=== PATIENT | male | born 1940 | race Caucasian/White ===

== ENCOUNTER 2017-07-14 11:41 | Observation (INO) | payer MEDICARE, OTHER ==
[2017-07-14 12:17] LABS: #Basophils 0.1 thou/uL (0.0-0.2); #Eosinphils 0.2 thou/uL (0.0-0.7); #Lymphocytes 1.5 thou/uL (1.20-3.40); #Monocytes 0.8 thou/uL (0.11-0.59); #Neutrophils 8.7 thou/uL (1.40-6.50); %Basophils 0.5 % (0.0-1.0); %Eosinophils 1.8 % (0.0-10.0); %Lymphocytes 13.3 % (21.0-51.0); %Monocytes 7.4 % (0.0-10.0); Hemoglobin 14.4 g/dL (14.0-18.0); Mean Corpuscular Hemoglobin 32.3 pg (27.0-31.0); Mean Corpuscular Volume 94.7 fl (80.0-94.0); Platelet Count 215 thou/uL (130-400); RBC Distribution Width 12.1 % (11.5-14.5); Red Blood Cell (RBC) Count 4.45 mill/uL (4.70-6.10); White Blood Cell (WBC) Count 11.3 thou/uL (4.8-10.8)
--- NOTE | 2017-07-14 12:20 | RAD ---
CHEST 1 VIEW: HISTORY: A 77-year-old male with chest pain. History of coronary artery disease, COPD, and congestive heart f ailure. FINDINGS: Monitor leads overlie the chest. Minimal cardiomegaly. There is blunting of both costophrenic angle s raising concern for possible small pleural effusions. Mild vascular congestion. Biapical pleural thickening. No confluent pneumonia. IMPRESSION: Mild vascular congestion and bilateral pleural effusions with borderline cardiomegaly. Mild biapical pleural thickening worse on the right side. No confluent pneumonia. POS: H
[2017-07-14 12:23] LABS: PTT 27.4 SEC (22.9-36.1); Prothrombin Time 13.3 SEC (12.0-14.7)
[2017-07-14 12:24] LABS: D-Dimer Test 0.53 *mcg/mL (0.27-0.43)
[2017-07-14 12:25] LABS: Bilirubin Negative (Negative); Blood, Urine Negative (Negative); Clarity CLEAR (Clear); Glucose, Urine (Dipstick) Negative (Negative); Leukocyte Negative (Negative); Nitrite Negative (Negative); Protein, Urine (Dipstick) Negative (Neg-Trace); Specific Gravity, Urine 1.011 (1.002-1.036)
[2017-07-14 12:43] LABS: ALT (SGPT) 34 U/L (8-55); AST (SGOT) 27 U/L (5-34); Albumin 3.6 g/dL (3.4-4.8); Alkaline Phosphatase 95 U/L (40-150); Anion Gap 15 mmol/L (10-20); BUN (Urea Nitrogen) 10 mg/dL (8.4-25.7); Bilirubin, Total 0.6 mg/dL (0.2-1.2); CK (CPK) 39 U/L (30-200); Calc. Creatinine Clearance 0 mL/min (70-130); Carbon Dioxide 25 mmol/L (23-31); Chloride 100 mmol/L (98-107); Estimated GFR-MDRD Greater than 90; Globulin 2.8 g/dL (2.4-3.5); Glucose 177 mg/dL (83-110); Lipase 11 U/L (8-78); Potassium 3.7 mmol/L (3.5-5.1); Protein, Total 6.4 g/dL (5.8-8.1); Sodium 136 mmol/L (136-145)
[2017-07-14 12:44] LABS: Digoxin Less than 0.15 ng/mL (0.8-2.0)
[2017-07-14 12:46] LABS: CKMB 1.1 ng/mL (0-6.6); Troponin I 0.017 ng/mL (< 0.028)
[2017-07-14] MEDS ORDERED: ISOVUE-370 76%-LOCM 1 ML ONE (13:26)
[2017-07-14] MEDS ORDERED: Ondansetron HCl/PF 4 MG/2 ML Vial IVP PRN (14:33)
[2017-07-14] MEDS ORDERED: hydrALAZINE 20 MG/ML VIAL SLOW IVP PRN (14:33)
[2017-07-14] MEDS ORDERED: Labetalol HCl 100 MG/20 ML VIAL SLOW IVP PRN (14:33)
[2017-07-14] MEDS ORDERED: Acetaminophen 650 MG Suppository PR PRN (14:33)
[2017-07-14] MEDS ORDERED: Acetaminophen 325 MG TAB PO PRN (14:33)
--- NOTE | 2017-07-14 15:13 | CT ---
CT ARTERIOGRAM CHEST WITH IV CONTRAST AND 3D MIP IMAGING: History Chest pain. Dyspnea. FINDINGS: No comparison. There is good contrast opacification of the pulmonary arteries and thoracic aorta wit h normal branching of the great vessels. There is calcification in the arterial structures. Nonenlarged, nonspecific lymph nodes are scattered about the mediastinum. There is mild atelectasis at each lung base. Prominent peripheral interstitial thickening involves each lung. Minimal right p leural fluid. IMPRESSION: 1. No CT evidence of pulmonary embolus. 2. Pulmonary interstitial fibrosis. 3. Atherosclerosis. POS: FARHEEN
[2017-07-14 15:24] LABS: Troponin I 0.024 ng/mL (< 0.028)
[2017-07-14] MEDS ORDERED: Dextrose 50% Abboject 50 ML SYRINGE SLOW IVP PRN (15:43)
[2017-07-14] MEDS ORDERED: HumaLOG 300 UNITS/3 ML VIAL SC PRN (15:43)
[2017-07-14] MEDS ORDERED: Dextrose 5% in Water 1,000 ML IV PRN (15:43)
[2017-07-14 16:11] VITALS: BMI 32.1
--- NOTE | 2017-07-14 16:15 | HP ---
PRIMARY CARE PROVIDER: [facility] in [place], [place]. CHIEF COMPLAINT: Dizziness. HISTORY OF PRESENT ILLNESS: Mr. Boo is a pleasant 77-year-old gentleman who was seen at [facility] on 07/14/2017 after he was transferred here by helicopter from his house. He has a history of coronary artery disease. He reports that he had some retrosternal discomfort las t night. He attributed to his meal. He describes it as dull, 1/10, lasting 1 or 2 hours. He took n itrospray without any relief. It subsequently resolved on its own. He denies any shortness of breat h, vertigo, nausea, vomiting at that time. He woke up today morning. He usually gets up slowly because he feels dizzy when he gets up suddenly. He went to use the bathroom. While he was in the bathroom, his phone rang. He got up suddenly to answer the phone. He had a sensation of the room spinning. He also started walking unsteadily. His neighbor called 911. Electrocardiogram done at the scene reportedly showed left bundle branch block . He was therefore transferred to this facility by helicopter. He reports that he has had similar chest discomfort in the past, tells me it was secondary to indiges tion. He denies any urinary symptoms. REVIEW OF SYSTEMS: The following complete review of systems was negative, unless otherwise mentioned in the HPI or below: Constitutional: Weight loss or gain, ability to conduct usual activities. Skin: Rash, itching. Eyes: Double vision, pain. ENT/Mouth: Nose bleeding, neck stiffness, pain, tenderness. Cardiovascular: Palpitations, dyspnea on exertion, orthopnea. Respiratory: Shortness of breath, wheezing, cough, hemoptysis, fever or night sweats. Gastrointestinal: Poor appetite, abdominal pain, heartburn, nausea, vomiting, constipation, or diarr hea. Genitourinary: Urgency, frequency, dysuria, nocturia. Musculoskeletal: Pain, swelling. Neurologic/Psychiatric: Anxiety, depression. Allergy/Immunologic: Skin rash, bleeding tendency. PAST MEDICAL HISTORY: Significant for diabetes mellitus type 2, myocardial infarction, dyslipidemia, chronic obstructive pulmonary disease. PAST SURGICAL HISTORY: Significant for appendectomy and cardiac stents x2. SOCIAL HISTORY: The patient chews tobacco. He reports occasional alcohol use. He denies recreation al drug use. FAMILY HISTORY: Significant for pancreatic cancer in his father and myocardial infarction in his gra ndfather. ALLERGIES: SULFA. CURRENT MEDICATIONS: Include metformin 1000 mg 2 times a day, spironolactone 25 mg daily, Lasix 80 m g daily, Symbicort 2 puffs 2 times a day and Novolin insulin by sliding scale. He also takes medicat ion for dyslipidemia, but is unable to recall the name. PHYSICAL EXAMINATION: GENERAL: Mr. Boo is awake and alert, not in acute distress. VITAL SIGNS: Blood pressure is 115/64, pulse is 73, his breathing at rate of 21 and saturating 98% o n room air. He is afebrile. EYES: No scleral icterus. No conjunctival pallor. ENT: Moist mucosal membranes, no oropharyngeal erythema or exudates. NECK: Supple, nontender, normal range of movement. Trachea is midline. RESPIRATORY: Accessory muscles of breathing are not active. Chest wall movements are symmetric bila terally. LUNGS: Clear to auscultation without wheeze, rhonchi or crepitations. CARDIOVASCULAR: S1 and S2 are heard, regular. Peripheral pulses palpable. No carotid bruit, no per icardial rub. ABDOMEN: Distended, nontender, bowel sounds are heard, no hepatomegaly, no splenomegaly. NEUROLOGIC: He has horizontal nystagmus on left gaze. Otherwise, cranial nerves II-XII are intact. Power is 5/5 in all 4 extremities. Deep tendon reflexes are 2+. Plantar reflexes downgoing bilater ally. Cprqqg-qc-[id number] test normal. MUSCULOSKELETAL: Power is 5/5 in all 4 extremities. He has bilateral lower extremity edema. SKIN: No rashes or subcutaneous nodules. LYMPHATIC: No cervical lymphadenopathy. PSYCHIATRIC: Normal mood, normal affect, patient is oriented to person, place, and time. LABORATORY DATA: Mr. Boo's labs and investigations were reviewed. I reviewed his electrocardiogr am, which shows normal sinus rhythm. He has nonspecific intraventricular conduction block. I also r eviewed his chest x-ray, which does not show any pulmonary infiltrates. He has mild pulmonary vascul ar congestion. He also had CT angiogram of the chest, which did not show any pulmonary embolism. He has pulmonary interstitial fibrosis. Laboratory investigation showed leukocytosis with 11,300 white cells, of which 77% are neutrophils, normal hemoglobin, normal platelet count, unremarkable electrol ytes, normal creatinine, normal liver profile, normal lipase, negative urinalysis. ASSESSMENT AND PLAN: Mr. Boo is a pleasant 77-year-old gentleman who was seen at [facility] on 07/14/2017. His problem list includes: 1. Vertigo. Mr. Boo is presenting with vertigo. He will be admitted to the hospital for further management, including neuro checks, MRI/MRA of the brain to rule out posterior circulation syndrome. I will also start him on a trial of meclizine. He does report that certain positions of the head a re worsening the vertigo. 2. Chest discomfort: The patient reports that he has had on and off chest discomfort of similar susana ure for several months to years. He also reports having stress test after having the symptoms. For now, repeat cardiac enzymes and monitor on telemetry. Check 2D echocardiogram to rule out regional w all motion abnormalities. Cardiology Service has also been consulted by the emergency room physician . 3. Diabetes mellitus: Start Accu-Cheks, insulin sliding scale. 4. Hypertension: Monitor vital signs, titrate antihypertensives as needed. 5. Chronic obstructive pulmonary disease: Stable. Code status was discussed. He is DNR. Many thanks for allowing me to participate in your patient's care. Please feel free to contact me wi th any questions or concerns. LEVEL OF RISK: High. LEVEL OF COMPLEXITY: High.
[2017-07-14 16:34] LABS: CKMB 1.3 ng/mL (0-6.6)
[2017-07-14 19:21] LABS: CKMB 1.2 ng/mL (0-6.6); Troponin I 0.026 ng/mL (< 0.028)
[2017-07-14] MEDS: Meclizine HCl 25 MG TAB PO SCH (20:53)
--- NOTE | 2017-07-14 21:27 | CON ---
DATE OF CONSULTATION: 07/14/2017 REFERRING PROVIDER: Dr. Luis Lui. REASON FOR CONSULTATION: Dizziness. HISTORY OF PRESENT ILLNESS: Mr. Boo is a pleasant 77-year-old male who has been concerned for evaluation of dizziness. Patient reports that this morning, he woke up and noticed dizziness and vertigo type sensation and felt that any sudden movement of his head would cause him to be feeling like he was spinning around in room. He was having difficulty with balancing himself and had to hold onto things. He states that this has never had happened before , he did not have any tinnitus or hearing loss. He did not complain of having any diplopia, nystagmus, numbness, tingling, or weakness. There were no changes in his speech or swallowing. He did not have any lightheadedness and feel like he is going to pass out. PAST MEDICAL HISTORY: Significant for hypertension, diabetes, hyperlipidemia, history of CA, COPD. PAST SURGICAL HISTORY: Significant for appendectomy and cardiac stent placement. SOCIAL HISTORY: He chews tobacco. He reports of occasional alcohol use. He denies illicit drug use. He is a retired . FAMILY HISTORY: Significant for pancreatic cancer in his father and history of CA in his grandfather. CURRENT MEDICATIONS: Please review MAR. ALLERGIES: SULFA DRUGS. REVIEW OF SYSTEMS: As mentioned in the HPI, otherwise negative. PHYSICAL EXAMINATION: VITAL SIGNS: Blood pressure of 89/51, pulse of 74, temperature of 98.4, respirations of 14, O2 sats 94% on room air. GENERAL: Well-developed, well-nourished male in no apparent distress. RESPIRATORY: Clear to auscultation bilaterally. CARDIOVASCULAR: Regular rate and rhythm. NEUROLOGIC: Mental status: Patient is awake, alert, oriented x3. Speech and language: Fluent speech. Cranial nerves: Pupils are 3 mm and reactive. Visual suarez are intact. Extraocular muscles are intact. No nystagmus is noted. Face is symmetric. Tongue and uvula midline. Motor exam showed normal tone and bulk with a 5/5 strength in both upper and lower extremities. Sensory : Diminished sensation in both upper and lower extremities and distal to proximal gradient. Deep tendon reflexes 1+ reflex in both upper and lower extremities. Babinski: Plantar responses flexion bilaterally. Coordination intact to woykyr-[id number]-tluafo tapping bilaterally. Rapid alternating hand movement is normal bilaterally. Dtxa-tt-upgo testing is normal bilaterally. Romberg is negative. LABORATORY DATA: Reviewed, which included CBC, CMP, troponin, CPK, CK-MB, urinalysis, and digoxin level, which is significant for WBC of 11.3, glucose of 163, otherwise unremarkable. IMAGING STUDIES: None. IMPRESSION: Dizziness, likely benign positional vertigo. ASSESSMENT AND PLAN: Mr. Boo is a pleasant 77-year-old male who presented with episodes of dizziness. Based on the description of spells, these are likely benign positional vertigo. At this time, I will recommend obtaining MRI brain without contrast for further evaluation. If his MRI does not reveal any acute intracranial abnormality then I would recommend treating with meclizine 25 mg q. 8 hour p.r.n. He may also benefit from Parada-Daroff exercise to be done at home. Thank you for your consultation. PHI
[2017-07-15 05:35] LABS: #Basophils 0.1 thou/uL (0.0-0.2); #Eosinphils 0.3 thou/uL (0.0-0.7); #Lymphocytes 1.7 thou/uL (1.20-3.40); #Monocytes 0.6 thou/uL (0.11-0.59); %Basophils 0.8 % (0.0-1.0); %Eosinophils 3.1 % (0.0-10.0); %Lymphocytes 19.5 % (21.0-51.0); %Monocytes 6.6 % (0.0-10.0); Mean Corpuscular HGB CONC 34.1 g/dL (32.0-36.0); Mean Corpuscular Hemoglobin 32.2 pg (27.0-31.0); Mean Corpuscular Volume 94.5 fl (80.0-94.0); Mean Platelet Volume 8.3 fL (7.4-10.4); Platelet Count 194 thou/uL (130-400); Red Blood Cell (RBC) Count 4.04 mill/uL (4.70-6.10); White Blood Cell (WBC) Count 8.6 thou/uL (4.8-10.8)
[2017-07-15 05:48] LABS: Anion Gap 10 mmol/L (10-20); BUN (Urea Nitrogen) 10 mg/dL (8.4-25.7); Calc. Creatinine Clearance 149 mL/min (70-130); Calcium 8.8 mg/dL (7.8-10.44); Carbon Dioxide 28 mmol/L (23-31); Cardiac Risk 4.4 (Less than 4.5); Chloride 103 mmol/L (98-107); Cholesterol 122 mg/dl (< 200 Desired); Estimated GFR-MDRD Greater than 90; Glucose 128 mg/dL (83-110); HDL Cholesterol 28 mg/dL (>60 Neg Risk); LDL Cholesterol, Calculated 74 mg/dL; Potassium 3.7 mmol/L (3.5-5.1); Sodium 137 mmol/L (136-145); Triglycerides 102 mg/dL (Less than 150)
[2017-07-15] MEDS: Meclizine HCl 25 MG TAB PO SCH ×2 (06:00→14:04)
[2017-07-15] MEDS ORDERED: Furosemide 80 MG TAB PO SCH (09:00)
--- NOTE | 2017-07-15 12:12 | MRI ---
MRI BRAIN NONCONTRAST: HISTORY: TIA. FINDINGS: No comparison. There is no evidence of acute intracranial hemorrhage or infarct. Diffuse cortical a trophy and mild chronic ischemic small-vessel disease are apparent. There is no mass effect or shift of midline structures. IMPRESSION: No acute intracranial abnormalities are demonstrated. POS: [facility]
[2017-07-15 12:13] VITALS: BP 124/59; TEMP 98.3
--- NOTE | 2017-07-15 12:19 | MRI ---
MRA BRAIN NONCONTRAST: HISTORY: TIA. FINDINGS: Good flow is demonstrated within each internal carotid system and to the vertebrobasilar system which is left vertebral dominant. Posterior communicating arteries are not well developed. No focal sten osis or aneurysm are visible. IMPRESSION: No significant abnormalities are demonstrated. POS: [facility]
--- NOTE | 2017-07-15 14:27 | CON ---
DATE OF CONSULTATION: 07/15/2017 REASON FOR CONSULTATION: Dizziness, lightheadedness and chest pain. HISTORY OF PRESENT ILLNESS: Mr. Boo is a 77-year-old gentleman with previous history of WI status post stent placement x2 in [place] and in [place], who recently presented with dizziness and lightheade dness. He had mild episode of chest pain lasting seconds on Sunday prior to presentation. This curr ent episode of lightheadedness has occurred on Sunday. He was life-flighted from near [place] to [place]. He is currently asymptomatic. PAST MEDICAL HISTORY: Diabetes mellitus, previous WI, hyperlipidemia, COPD and systolic heart failur e. SOCIAL HISTORY: Positive tobacco use. No alcohol use. ALLERGIES: SULFA. MEDICATIONS: Metformin, Symbicort, NovoLog, spironolactone and Lasix. REVIEW OF SYSTEMS: Ten-point review of systems is reviewed and as above, otherwise negative. PHYSICAL EXAMINATION: GENERAL: Patient is a pleasant male who is in no acute distress. The patient appears his stated age . VITAL SIGNS: Blood pressure 124/59, pulse 91 and temperature 98.3. NEUROLOGIC: The patient is alert and oriented x3 with no focal neurologic deficits. HEENT: Sclerae without icterus. Mouth has moist mucous membranes with normal pallor. NECK: No JVD. Carotid upstroke brisk. No bruits bilaterally. LUNGS: Clear to auscultation with unlabored respirations. BACK: No scoliosis or kyphosis. CARDIAC: Regular rate and rhythm with normal S1 and S2. No S3 or S4 noted. No significant rubs, murmurs, thrills, or gallops noted throughout the precordium. PMI is not displa sd. There is no parasternal heave. ABDOMEN: Soft, nontender, nondistended. No peritoneal signs present. No hepatosplenomegaly. No abnormal striae. EXTREMITIES: 2+ femoral and 2+ dorsalis pedis pulses. No cyanosis, clubbing, or edema. SKIN: No gross abnormalities. PERTINENT LABS: CK and troponin negative. Hemoglobin 13. Creatinine 0.62. IMAGING DATA: Echo Doppler shows an LVEF 30% to 35% with akinesis of the inferior wall. IMPRESSION: 1. Dizziness and lightheadedness. 2. Chest pain. 3. Previous myocardial infarction. 4. Ischemic cardiomyopathy. RECOMMENDATIONS: Mr. Boo does state he has been told in the past that he has a cardiomyopathy. T here has been discussions about ICD in the past. I did discuss LifeVest with Mr. Boo. His curren t LVEF is unknown from his previous facility. I did state that if we were able to obtain the records from the [facility] in a timely fashion and his LVEF is less than 35%. We could discuss placing a de fibrillator. He states he is not interested in any further treatment or therapy at this institution and would like all his treatment performed at [place] and would like to go home. I did state he is at risk of malignant dysrhythmia without the LifeVest. At this point, he is not interested in a LifeVe st and would like to go home. Given that he is not interested in any further therapy, it would be ok ay from my standpoint to discharge home. Would recommend low dose beta-lisa therapy. Otherwise, I have no further recommendations.
[2017-07-15] MEDS ORDERED: Carvedilol 3.125 MG TAB PO SCH (21:00)
--- NOTE | 2017-07-15 23:02 | DIS ---
PRIMARY CARE PROVIDER: [facility] in [facility]. DATE OF ADMISSION: 07/14/2017 DATE OF DISCHARGE: 07/15/2017 DISCHARGE DIAGNOSES: 1. Benign paroxysmal positional vertigo. 2. Cardiomyopathy. CONDITION OF PATIENT ON THE DAY OF DISCHARGE: Stable. I assessed Mr. Boo on the day of discharge . He denies any chest pain or shortness of breath. Vital signs are stable. He denied any vertigo. S1 and S2 are heard, regular. Lungs are clear to auscultation bilaterally. DISCHARGE MEDICATIONS: Carvedilol 3.125 mg 2 times a day, Lasix 80 mg daily, meclizine 25 mg 3 times a day as needed. HOSPITAL COURSE: Mr. Boo is a pleasant 77-year-old gentleman who was admitted to [facility] on observation status on 07/14/2017. After he was flown in from his house for an e lectrocardiogram that showed left bundle branch block after he had chest discomfort the previous nigh t. He also had dizziness and difficulty walking on the day of admission. He was seen by Neurology adrienne and Cardiology Service. He was diagnosed with benign positional vertigo. I started him on me clizine. However, his symptoms resolved before he took the first dose of meclizine. Cardiology service saw him and he had an echocardiogram, which showed ejection fraction of 30-35%. Gia hodgson recommended obtaining records from his nodulizer and LifeVest placement if the cardiomyopathy is new. The patient did not wish to have the LifeVest placed and wanted to go home. He is being dis charged on low dose beta-lisa. He is advised to follow up with his primary care physician and héctor villegas his nodulizer. Many thanks for allowing me to participate in your patient's care. Please feel free to contact me wi th any questions or concerns. DISCHARGE DESTINATION: Home. Please note that Mr. Boo was advised to follow Parada-Daroff exercises at home.
== END 2017-07-15 15:26 | disposition home or self-care (01) ==
LOC: ERS 11:41 → 2SW 15:38 → INTOOBSV 15:38
PROVIDERS: ADMIT Internal Medicine; ATTEND Internal Medicine
DX: H81.10 Benign paroxysmal vertigo, unspecified ear (principal); R07.89 Other chest pain; I25.10 Atherosclerotic heart disease of native coronary artery without angina pectoris; E11.9 Type 2 diabetes mellitus without complications; I25.2 Old myocardial infarction; E78.5 Hyperlipidemia, unspecified; J44.9 Chronic obstructive pulmonary disease, unspecified; F17.220 Nicotine dependence, chewing tobacco, uncomplicated; I11.0 Hypertensive heart disease with heart failure; I50.20 Unspecified systolic (congestive) heart failure; I25.5 Ischemic cardiomyopathy; Z79.4 Long term (current) use of insulin; Z79.51 Long term (current) use of inhaled steroids; Z79.899 Other long term (current) drug therapy; Z88.2 Allergy status to sulfonamides; Z80.0 Family history of malignant neoplasm of digestive organs; Z95.5 Presence of coronary angioplasty implant and graft; Z90.49 Acquired absence of other specified parts of digestive tract; Z66 Do not resuscitate
CPT/HCPCS: 70544; 70551; 71045; 71275; 80048; 80053; 80061; 80162; 81003; 82550; 82553 ×2; 82962 ×2; 83690; 83880; 84484 ×2; 85025 ×2; 85379; 85610; 85730; 93005; 93306; 96360; 96361; 97139; 99285; G0378; 36415; 36416

== ENCOUNTER → 2020-09-15 | Day surgery (SDC) | payer OTHER | LOC: ENDO/OP 07:53 | PROVIDERS: ATTEND Internal Medicine Gastroenterology | DX: R13.10 Dysphagia, unspecified (principal); R05 Cough; R63.4 Abnormal weight loss; Z88.0 Allergy status to penicillin; Z88.2 Allergy status to sulfonamides; Z88.8 Allergy status to other drugs, medicaments and biological substances | CPT/HCPCS: 91010 ==